=== PATIENT | female | born 1930 | race Caucasian/White ===

== ENCOUNTER 2016-12-01 10:04 | Emergency (ER) | payer MEDICARE, OTHER ==
[2016-12-01 10:31] VITALS: BP 141/78
--- NOTE | 2016-12-01 11:05 | UC ---
Shortness of Breath HPI - HPI Summary HPI Summary: SUDDEN ONSET OF SOB AND MID BACK PAIN 2 DAYS AGO WHILE GETTING OUT OF BED IN THE MORNING. SX RESOLVE AT REST. NO CP, NAUSEA, SWEATS, DIZZINESS. NO SYNCOPE. HAS HAD SOME INTERMITTENT BLURRY VISION BUT THIS IS LONGSTANDING. NO SIGNIFICANT MEDICAL HISTORY ALTHOUGH OF NOTE HAD STRESS INDUCED LEFT BUNDLE BRANCH BLOCK ON STRESS [place] [address] NOLAND. LEFT BUNDLE NOTED TODAY ON EKG WELL. 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 - SON Onset/Duration: Sudden Onset, Lasting Days, Still Present Current Severity: Moderate Dyspnea At: Rest Aggrevating Factors: Deep Breaths Alleviating Factors: Spontaneous Resolution - NO SOB AT REST Associated Signs & Symptoms: Negative: Cough (Productive), Cough (Nonproductive) , Wheezing, Chest Pain w/Cough, Chest Pain Unrelated to Cough, Fever, Chills, Diaphoresis, Nasal Congestion, Dizzy, Edema - Allergy/Home Medications Allergies/Adverse Reactions: Allergies Allergy/AdvReac Type Severity Reaction Status Date / Time No Known Allergies Allergy Verified 12/01/16 10:27 Home Medications: Home Medications Aspirin [Aspirin Adult Low Dose 81 MG] 1 PO DAILY 12/01/16 [History] Calcium 1 PO DAILY 12/01/16 [History] PMH/Surg Hx/FS Hx/Imm Hx Previously Healthy: Yes Endocrine History Of: Denies: Diabetes, Thyroid Disease Cardiovascular History Of: Denies: Cardiac Disorders, Hypertension Respiratory History Of: Denies: COPD, Asthma GI/ History Of: Denies: Ulcer - Surgical History Surgical History: Yes Surgery Procedure, Year, and Place: c section, lumpectomy both side, appy - Family History Known Family History: Positive: Cardiac Disease - Social History Alcohol Use: None Substance Use Type: None Smoking Status (MU): Former Smoker - Immunization History Most Recent Influenza Vaccination: 2016 Review of Systems Constitutional: Negative Skin: Negative Respiratory: Shortness Of Breath Gastrointestinal: Negative Musculoskeletal: Myalgia - BACK PAIN Neurological: Negative All Other Systems Reviewed And Are Negative: Yes Physical Exam Triage Information Reviewed: Yes Appearance: Well-Appearing, No Pain Distress, Well-Nourished Vital Signs: Initial Vital Signs Temp 98.8 F 12/01/16 10:21 Pulse 74 12/01/16 10:21 Resp 18 12/01/16 10:21 BP 141/78 12/01/16 10:21 Pulse Ox 92 12/01/16 10:21 Vital Signs Reviewed: Yes Eyes: Positive: Conjunctiva Clear ENT: Positive: Hearing grossly normal Neck: Positive: Supple Respiratory Exam: Normal Cardiovascular Exam: Normal Abdomen Description: Positive: Nontender, Soft Musculoskeletal: Positive: No Edema Neurological: Positive: Alert Psychological: Positive: Normal Response To Family, Age Appropriate Behavior Skin: Negative: rashes Diagnostics - EKG Cardiac Rate: NL - 75BPM. LEFT BUNDLE BRANCH BLOCK Ectopy: None ST Segment: Normal Shortness of Breath Dx - Differential Dx/Diagnosis Provider Diagnoses: SOB/LEFT BUNDLE BRANCH BLOCK - Physician Notification/Consults Discussed Patient Care With: DARIA HOLLINGSWORTH Time Discussed With Above Provider: 11:00 - TO [facility] PR[facility] CAR Discharge - Discharge Plan Condition: Stable Disposition: AGAINST MEDICAL ADVICE Referrals: Riddhi Brantley MD [Primary Care Provider] -
== END 2016-12-01 10:55 | disposition left against medical advice (07) ==
LOC: UCEAST 10:04
DX: R06.02 Shortness of breath (principal); I44.7 Left bundle-branch block, unspecified; Z87.891 Personal history of nicotine dependence
CPT/HCPCS: 93005; 99202; G0463

== ENCOUNTER 2016-12-01 11:16 | Emergency (ER) | payer MEDICARE, OTHER ==
[2016-12-01] MEDS ORDERED: Aspirin Low Dose CHEW TAB* 81 MG PO ONE (11:58)
[2016-12-01] MEDS ORDERED: NS 0.9% 1000 ML* 500 ML IV ONE (11:58)
--- NOTE | 2016-12-01 12:25 | RAD ---
INDICATION: Back pain COMPARISON: January 19, 2012 TECHNIQUE: An AP portable view obtained at 1200 hours is submitted. FINDINGS: Bones/Soft Tissues: There are no acute bony findings. Cardiomediastinal: The cardiomediastinal silhouette is normal. Lungs: There are no infiltrates. There are emphysematous changes Pleura: There are no pleural effusions. Other: None IMPRESSION: EMPHYSEMATOUS CHANGE. NO ACTIVE DISEASE.
[2016-12-01 12:50] LABS: Hematocrit 41 % (35-47); Hemoglobin 13.6 g/dl (12.0-16.0); Mean Corpuscular HGB Conc 34 g/dl (31-36); Mean Corpuscular Hemoglobin 30 pg (27-31); Mean Corpuscular Volume 89 fL (80-97); Mean Platelet Volume 8 um3 (7.4-10.4); Red Blood Count 4.57 10^6/ul (4.0-5.4); Red Cell Distribution Width 14 % (10.5-15); White Blood Count 8.5 10^3/ul (3.5-10.8)
[2016-12-01 13:07] LABS: Albumin 4.1 g/dL (3.2-5.2); BUN/Creatinine Ratio 22.4 (8-20); EGFR African American 92.8 (>60); EGFR Non-African American 72.2 (>60); Globulin 2.6 g/dL (2-4); Magnesium 2.1 mg/dL (1.9-2.7); Potassium 4.3 mmol/L (3.5-5.0); Total Bilirubin 0.5 mg/dL (0.2-1.0); Total Protein 6.7 g/dL (6.4-8.9)
--- NOTE | 2016-12-01 15:18 | CONSULT ---
Subjective Date of Service: 12/01/16 Interval History: 86 yo F with hx of tobacco abuse, COPD p/w back pain. Patient reports pain started a few days ago as she was twisting her body to get out of bed she noticed a sharp pain in the R posterior lower chest/mid-back. States she felt that it was likely a muscle strain. It hurt more with certain movements and with deep breathing. She states she has chronic mild SOB that did not seem any worse although she has not been ambulating as much as normal. Denies chest pain , nausea, vomiting, diaphoresis associated with her back pain. Says she took a full strength ASA the first day of the pain but has not taken anything since. Due to the persistent pain she came to the ED. EKG showed LBBB which is old. She received a full dose ASA here as well and when she ambulated to the bathroom earlier she felt the pain had pretty much resolved. She is anxious to go home. She reports no cardiac history. Due to acute SOB and palpitations in 2000 she underwent a stress test with showed no evidence of ischemia but she was found to have a LBBB at that time that seemed to be rate related although remained present until HR was < 100. She quit smoking at that time. Family History: Findings - F - CAD, at 92, M - healthy - at 93 Social History: Findings - Former tobacco abuse, quit in 2000, 50-100 pack year hx, no EtOH or drug use Past Medical History: Findings - COPD, vertigo, tobacco abuse Review of Systems - Measurements Intake and Output: Intake and Output Last 24 Hours 11/29/16 11/30/16 12/01/16 12/02/16 06:59 06:59 06:59 06:59 Weight 63.503 kg - Review of Systems Constitutional Symptoms: Negative: Fever Dermatology: Positive: Normal HEENT: Positive: Normal Eyes: Positive: Normal Thyroid: Positive: Normal Pulmonary: Positive: Shortness of Breath - chronic, no change Cardiology: Negative: Chest Pain, Palpitations, Syncope Gastroenterology: Positive: Constipation Negative: Abdominal Pain, Nausea, Vomiting, Diarrhea Genital - Urinary: Positive: Normal Neurology: Positive: Normal Psychiatry: Positive: Normal Objective Vital Signs 12/01/16 12/01/16 12/01/16 11:36 11:56 11:58 Temperature 96.7 F Pulse Rate 86 63 Respiratory 20 Rate Blood Pressure 90/73 143/82 (mmHg) O2 Sat by Pulse 100 99 Oximetry 12/01/16 12/01/16 12/01/16 12:00 12:23 12:30 Temperature 98.7 F Pulse Rate 79 70 70 Respiratory 16 20 Rate Blood Pressure 143/76 140/59 140/59 (mmHg) O2 Sat by Pulse 98 97 98 Oximetry 12/01/16 12/01/16 12/01/16 13:00 13:37 14:00 Temperature Pulse Rate 70 70 75 Respiratory 20 19 19 Rate Blood Pressure 149/64 151/68 149/81 (mmHg) O2 Sat by Pulse 97 97 99 Oximetry 12/01/16 14:30 Temperature Pulse Rate 69 Respiratory 18 Rate Blood Pressure 151/77 (mmHg) O2 Sat by Pulse 98 Oximetry Oxygen Devices in Use Now: None Appearance: Elderly, F, laying in bed in NAD Eyes: No Scleral Icterus, PERRLA Ears/Nose/Mouth/Throat: Mucous Membranes Moist Neck: NL Appearance and Movements; NL JVP Respiratory: Symmetrical Chest Expansion and Respiratory Effort, Clear to Auscultation Cardiovascular: NL Sounds; No Murmurs; No JVD, RRR, - - Mild TTP in R mid-back, just lateral to scapula Abdominal: NL Sounds; No Tenderness; No Distention Lymphatic: No Cervical Adenopathy Extremities: No Edema Skin: No Rash or Ulcers Neurological: Alert and Oriented x 3 Result Diagrams: 12/01/16 12:35 12/01/16 12:35 Assessment/Plan - Billing R sided back pain in an 86 yo F with hx of COPD, vertigo, tobacco abuse. Symptoms seem to be MSK in nature and would be very atypical for ACS. Initial troponin is negative and pain has been ongoing for some time now. EKG shows LBBB which was noted in the past related to elevated HR during her stress test, have no recent EKGs for comparison. Do not feel that the patient needs any further work-up here in the hospital and would treat conservatively with tylenol , NSAIDs and possibly low dose flexeril. Patient should follow-up with PCP as an outpatient. Counseling and/or Coordination of Care Minutes: 35
[2016-12-01 15:50] VITALS: BP 166/87
--- NOTE | 2016-12-01 21:19 | ED ---
Yoshi Carter Anna, scribed for Reyubmarcoi,Yahir Ramesh MD on 12/01/16 at 1153 . Back Pain - HPI Summary HPI Summary: Patient is an 86 y/o female coming to [facility] presenting with the sudden onset of constant right-sided middle back pain that began two days ago when she woke up with no apparent traumatic cause. She has intermittent vertigo at baseline, none today. She additionally has intermittent SOB. Denies CP, coughing, fever, leg pain. Denies history of blood clots, thyroid issues. She ate a small breakfast this morning. Her BP was 90/73 at triage, but is normally 118/60. Upon exam, it was 143/82. She was seen at [facility] today and recommended to come to [facility]. She takes Aspirin daily but no other daily medications. She had an EKG and stress test due to SOB and CP in 2000, which revealed at LBBB but no other findings. Her history is significant for mild COPD, but has not used oxygen in the past. 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 [employer] - Accompanied by her son Onset/Duration: Sudden Onset Onset/Duration: Started Days Ago, Still Present Timing: Lasting Days Severity Initially: Moderate Severity Currently: Moderate Pain Intensity: 8 Pain Scale Used: 0-10 Numeric - Allergies/Home Medications Allergies/Adverse Reactions: Allergies Allergy/AdvReac Type Severity Reaction Status Date / Time No Known Allergies Allergy Verified 12/01/16 10:27 Home Medications: Home Medications Aspirin EC Low Dose* [Ecotrin EC Low Dose 81 MG*] 81 mg PO DAILY 12/01/16 [ History Confirmed 12/01/16] Calcium Carbonate [Calcium 600] 600 mg PO DAILY 12/01/16 [History Confirmed ] Meclizine TAB* [Antivert 12.5 TAB*] 25 mg PO TID PRN 12/01/16 [History Confirmed 12/01/16] PMH/Surg Hx/FS Hx/Imm Hx Endocrine/Hematology History: Denies: Hx Diabetes, Hx Thyroid Disease Cardiovascular History: Reports: Other Cardiovascular Problems/Disorders - LBBB Denies: Hx Hypertension Respiratory History: Reports: Hx Chronic Obstructive Pulmonary Disease (COPD) - mild Denies: Hx Asthma GI History: Denies: Hx Ulcer - Surgical History Surgery Procedure, Year, and Place: c section, lumpectomy both side, appy Infectious Disease History: Denies: Hx Clostridium Difficile, Hx Hepatitis, Hx Human Immunodeficiency Virus (HIV), Hx of Known/Suspected MRSA, Traveled Outside the [place] in Last 30 Days - Family History Known Family History: Positive: Cardiac Disease - Social History Occupation: Retired Alcohol Use: None Substance Use Type: Reports: None Hx Tobacco Use: Yes Smoking Status (MU): Former Smoker Amount Used/How Often: Quit in 2000. Review of Systems Negative: Fever Negative: Chest Pain Positive: Shortness Of Breath. Negative: Cough Musculoskeletal: Other Positive: Myalgia - back pain, Edema - baseline, one year Neurological: Other - intermittent vertigo, chronic All Other Systems Reviewed And Are Negative: Yes Physical Exam Triage Information Reviewed: Yes Vital Signs On Initial Exam: Initial Vitals Temp Pulse Resp BP Pulse Ox 96.7 F 86 20 90/73 100 12/01/16 11:36 12/01/16 11:36 12/01/16 11:36 12/01/16 11:36 12/01/16 11:36 Vital Signs Reviewed: Yes Appearance: Positive: Well-Appearing, No Pain Distress, Well-Nourished Skin: Positive: Warm, Skin Color Reflects Adequate Perfusion, Dry Head/Face: Positive: Normal Head/Face Inspection Eyes: Positive: EOMI, CINTHIA, Conjunctiva Clear ENT: Positive: Hearing grossly normal Neck: Positive: Supple, Nontender Respiratory/Lung Sounds: Positive: Clear to Auscultation, Breath Sounds Present. Negative: Rales, Rhonchi, Wheezes Cardiovascular: Positive: RRR. Negative: Murmur, Rub Abdomen Description: Positive: Nontender, No Organomegaly, Soft. Negative: Distended, Guarding, Peritoneal Signs Bowel Sounds: Positive: Present Musculoskeletal: Positive: Strength/ROM Intact, Edema Left - 1+ non-pitting edema of LLE. Good pulses. Neurological: Positive: Sensory/Motor Intact, Alert, Oriented to Person Place, Time, Normal Gait. Negative: Cerebellar Dysfunction Psychiatric: Positive: Affect/Mood Appropriate Diagnostics - Vital Signs Vital Signs Temp Pulse Resp BP Pulse Ox 12/01/16 11:36 96.7 F 86 20 90/73 100 - Laboratory Lab Results: Lab Results 12/01/16 12/01/16 12/01/16 Range/Units 12:35 12:35 12:35 WBC 8.5 (3.5-10.8) 10^3/ul RBC 4.57 (4.0-5.4) 10^6/ul Hgb 13.6 (12.0-16.0) g/dl Hct 41 (35-47) % MCV 89 (80-97) fL MCH 30 (27-31) pg MCHC 34 (31-36) g/dl RDW 14 (10.5-15) % Plt Count 197 (150-450) 10^3/ul MPV 8 (7.4-10.4) um3 Neut % (Auto) 76.1 (38-83) % Lymph % (Auto) 16.1 L (25-47) % Snyder % (Auto) 7.1 (1-9) % Eos % (Auto) 0.3 (0-6) % Baso % (Auto) 0.4 (0-2) % Absolute Neuts (auto) 6.5 (1.5-7.7) 10^3/ul Absolute Lymphs (auto) 1.4 (1.0-4.8) 10^3/ul Absolute Monos (auto) 0.6 (0-0.8) 10^3/ul Absolute Eos (auto) 0 (0-0.6) 10^3/ul Absolute Basos (auto) 0 (0-0.2) 10^3/ul Absolute Nucleated RBC 0.01 10^3/ul Nucleated RBC % 0.1 INR (Anticoag Therapy) 0.96 (0.89-1.11) D-Dimer, Quantitative 225 (Less Than 230) ng/mL Sodium 138 (133-145) mmol/L Potassium 4.3 (3.5-5.0) mmol/L Chloride 103 (101-111) mmol/L Carbon Dioxide 31 (22-32) mmol/L Anion Gap 4 (2-11) mmol/L BUN 17 (6-24) mg/dL Creatinine 0.76 (0.51-0.95) mg/dL Est GFR ( Amer) 92.8 (>60) Est GFR (Non-Af Amer) 72.2 (>60) BUN/Creatinine Ratio 22.4 H (8-20) Glucose 93 (70-100) mg/dL Lactic Acid (0.5-2.0) mmol/L Calcium 10.0 (8.6-10.3) mg/dL Magnesium 2.1 (1.9-2.7) mg/dL Total Bilirubin 0.50 (0.2-1.0) mg/dL AST 17 (13-39) U/L ALT 11 (7-52) U/L Alkaline Phosphatase 50 (34-104) U/L Total Creatine Kinase 68 (10-223) U/L CK-MB (CK-2) 2.7 (0.6-6.3) ng/mL Troponin I 0.00 (<0.04) ng/mL B-Natriuretic Peptide ( - 100) pg/mL Total Protein 6.7 (6.4-8.9) g/dL Albumin 4.1 (3.2-5.2) g/dL Globulin 2.6 (2-4) g/dL Albumin/Globulin Ratio 1.6 (1-3) 12/01/16 12/01/16 Range/Units 12:35 12:35 WBC (3.5-10.8) 10^3/ul RBC (4.0-5.4) 10^6/ul Hgb (12.0-16.0) g/dl Hct (35-47) % MCV (80-97) fL MCH (27-31) pg MCHC (31-36) g/dl RDW (10.5-15) % Plt Count (150-450) 10^3/ul MPV (7.4-10.4) um3 Neut % (Auto) (38-83) % Lymph % (Auto) (25-47) % Snyder % (Auto) (1-9) % Eos % (Auto) (0-6) % Baso % (Auto) (0-2) % Absolute Neuts (auto) (1.5-7.7) 10^3/ul Absolute Lymphs (auto) (1.0-4.8) 10^3/ul Absolute Monos (auto) (0-0.8) 10^3/ul Absolute Eos (auto) (0-0.6) 10^3/ul Absolute Basos (auto) (0-0.2) 10^3/ul Absolute Nucleated RBC 10^3/ul Nucleated RBC % INR (Anticoag Therapy) (0.89-1.11) D-Dimer, Quantitative (Less Than 230) ng/mL Sodium (133-145) mmol/L Potassium (3.5-5.0) mmol/L Chloride (101-111) mmol/L Carbon Dioxide (22-32) mmol/L Anion Gap (2-11) mmol/L BUN (6-24) mg/dL Creatinine (0.51-0.95) mg/dL Est GFR ( Amer) (>60) Est GFR (Non-Af Amer) (>60) BUN/Creatinine Ratio (8-20) Glucose (70-100) mg/dL Lactic Acid 0.8 (0.5-2.0) mmol/L Calcium (8.6-10.3) mg/dL Magnesium (1.9-2.7) mg/dL Total Bilirubin (0.2-1.0) mg/dL AST (13-39) U/L ALT (7-52) U/L Alkaline Phosphatase (34-104) U/L Total Creatine Kinase (10-223) U/L CK-MB (CK-2) (0.6-6.3) ng/mL Troponin I (<0.04) ng/mL B-Natriuretic Peptide 73 ( - 100) pg/mL Total Protein (6.4-8.9) g/dL Albumin (3.2-5.2) g/dL Globulin (2-4) g/dL Albumin/Globulin Ratio (1-3) Result Diagrams: 12/01/16 12:35 12/01/16 12:35 Lab Statement: Any lab studies that have been ordered have been reviewed, and results considered in the medical decision making process. - Radiology CXR Xray Interpretation: Positive (See Comments) Radiology Interpretation Completed By: Radiologist - IMPRESSION: EMPHYSEMATOUS CHANGE. NO ACTIVE DISEASE. - EKG 1146 Cardiac Rate: NL - 89 bpm EKG Rhythm: Sinus Rhythm EKG Interpretation: APCs. LBBB. QRSD 143. No acute ischemic changes. Back Pain Course/Dx - Course Assessment/Plan: Patient is an 86 y/o female coming to [facility] presenting with the sudden onset of constant right-sided middle back pain that began two days ago when she woke up with no apparent traumatic cause. She has intermittent vertigo at baseline, none today. She additionally has SOB and left leg edema. Denies CP, coughing, fever, leg pain. Denies history of blood clots, thyroid issues. She ate a small breakfast this morning. Her BP was 90/73 at triage, but is normally 118/60. Upon exam, it was 143/82. She was seen at [facility] today and recommended to come to [facility]. She takes Aspirin daily but no other daily medications. She had an EKG and stress test due to SOB and CP in 2000, which revealed at LBBB but no other findings. Her history is significant for mild COPD , but has not used oxygen in the past. Labs reveal D-dimer of 225, BUN/ Creatinine ratio of 22.4, otherwise WNL. CXR reveals emphysematous change with no active disease. EKG reveals NSR of 89 bpm with LBBB, APCs, QRSD 143. Patient was given fluids and 324 mg PO Aspirin in the ED course. She was given Oxygen therapy. Discussed patient care with Dr. Alvarez (hospitalist) at 1437. Accepts for admission. After seeing the patient, Dr. Alvarez recommends that she be discharged home and treated on an outpatient basis with her PCP. - Diagnoses Provider Diagnoses: SOB (shortness of breath), Rib pain - Provider Notifications Discussed Care of Patient With: Dr. Alvarez (hospitalist) at 1437. Agrees to accept patient for admission. Discharge - Discharge Plan Condition: Stable Disposition: HOME Patient Education Materials: Dyspnea (ED), Chest Wall Pain (ED) Referrals: Riddhi Brantley MD [Primary Care Provider] - Additional Instructions: Follow up with your primary care provider within 48 hours. Return to the Emergency Department for new or worsening symptoms. The documentation as recorded by the Yoshi cifuentes Anna accurately reflects the service I personally performed and the decisions made by , Yahir Sin MD.
== END 2016-12-01 15:49 | disposition home or self-care (01) ==
LOC: ED 11:16
DX: R07.81 Pleurodynia (principal); R06.02 Shortness of breath; Z79.82 Long term (current) use of aspirin; Z87.891 Personal history of nicotine dependence
CPT/HCPCS: 36415; 71010; 80053; 82550; 82553; 83605; 83735; 83880; 84484; 85025; 85379; 85610; 93005; 99283; A9270-GY

== ENCOUNTER 2017-09-14 14:48 | Observation (INO) | payer MEDICARE, OTHER ==
[2017-09-14] MEDS ORDERED: Ondansetron INJ* 2 MG/ML VIAL IV ONE (15:27)
[2017-09-14 15:30] LABS: ABS Basophils 0 10^3/ul (0-0.2); ABS Eosinophils 0 10^3/ul (0-0.6); ABS Lymphocytes 0.2 10^3/ul (1.0-4.8); ABS Monocytes 0.4 10^3/ul (0-0.8); ABS Neutrophils 7.5 10^3/ul (1.5-7.7); ABS Nucleated RBC 0 10^3/ul; Eosinophil % 0 % (0-6); Hematocrit 36 % (35-47); Hemoglobin 12.1 g/dl (12.0-16.0); Lymphocyte % 2.7 % (25-47); Mean Corpuscular HGB Conc 33 g/dl (31-36); Mean Corpuscular Hemoglobin 29 pg (27-31); Mean Corpuscular Volume 88 fL (80-97); Mean Platelet Volume 8 um3 (7.4-10.4); Nucleated Red Blood Cells % 0.1; Platelet Count 174 10^3/ul (150-450); Red Blood Count 4.14 10^6/ul (4.0-5.4); Red Cell Distribution Width 14 % (10.5-15); White Blood Count 8.2 10^3/ul (3.5-10.8)
[2017-09-14] MEDS: NS 0.9% 1000 ML* 2,000 ML IV ONE (15:41)
[2017-09-14 15:45] LABS: EGFR Non-African American 76.6 (>60)
[2017-09-14] MEDS ORDERED: Acetaminophen TAB* 325 MG PO ONE (15:59)
[2017-09-14] MEDS ORDERED: Ibuprofen TAB* 400 MG PO ONE (16:58)
[2017-09-14] MEDS ORDERED: Ondansetron INJ* 2 MG/ML VIAL IV PRN (19:02)
[2017-09-14] MEDS ORDERED: Magnesium Sulfate 1 GM IV* 1 GM/100 ML BAG IV ONE (19:16)
[2017-09-14] MEDS ORDERED: NS 0.9% 500 ML* 500 ML IV SCH (20:00)
[2017-09-14] MEDS: Calcium Acetate CAP* 667 MG PO SCH (21:17)
--- NOTE | 2017-09-14 21:29 | HP ---
AMENDED REPORT NOW INCLUDES COSIGNER DESIGNATION - ESIGNED BEFORE ADJUSTMENT ADMISSION HISTORY AND PHYSICAL: DATE OF ADMISSION: 09/14/17 PRIMARY CARE PHYSICIAN: Dr. Riddhi Brantley. ADMITTING AND ATTENDING DURING THIS ADMISSION: Dr. George Funez.* (DICTATED BY JUANA SALAS NP) HISTORY OF PRESENT ILLNESS: This is a very pleasant 87-year-old female patient who was in her usual state of health until yesterday when she had a sudden onset of nausea, vomiting, and diarrhea that persisted for the last 24 hours. The patient stated she became so weak this morning and shaky. She was unable to tolerate water. The vomiting and diarrhea persisted to the point where she had to call 911 and was transferred by emergency medical services to the ER for evaluation. The patient received 2 L of IV fluids and Zofran in the emergency department. She said she did feel better. She is still complaining of some dizziness and general weakness. The patient states that she did not feel steady on her feet when trying to ambulate to the bathroom. At that point, the emergency physician Dr. Trejo consulted Medicine for an observation admission for this patient. The patient did state she had a headache earlier in the day when her symptoms began that was moderate to severe. PAST MEDICAL HISTORY: The patient has history of mild COPD, vertigo, and very remote history of tobacco abuse. PAST SURGICAL HISTORY: None. MEDICATIONS: At home include: 1. Baby aspirin 81 mg daily. 2. Calcium acetate 667 mg 2 times a day. 3. Ibuprofen as needed 400 mg for pain. ALLERGIES: The patient has no known drug allergies. FAMILY HISTORY: None. SOCIAL HISTORY: Tobacco abuse as stated above. She quit smoking 15 years ago. Denies any alcohol use or abuse, never in the past. Denies any illicit drug use. Lives by herself in senior housing. Has a son, Roberto, who is her medical proxy and a [id number] close by. REVIEW OF SYSTEMS: A 10-point review of systems is negative except as noted in the HPI. PHYSICAL EXAMINATION GENERAL: The patient is awake and alert. No acute distress noted. VITAL SIGNS: Currently, temperature 98.7, please make a note that temperature initially was 100.3 when she first arrived in the emergency department. Heart rate 74, respiratory rate 18, O2 saturation 96% on room air, blood pressure is 98/54. HEENT: The patient is atraumatic and normocephalic. PERRLA with nonicteric sclerae. Oral mucosa is very dry. NECK: Supple. No carotid bruits auscultated. No thyromegaly is appreciated. LUNGS: Clear bilaterally to auscultation without any wheezing, rhonchi, or rales. CARDIOVASCULAR: S1, S2 are present. Rate and rhythm are regular. No murmurs, gallops, or rubs appreciated. ABDOMEN: Soft and tender in the left lower quadrant only. Positive bowel sounds, moderately hyperactive noted. : Deferred. MUSCULOSKELETAL: There is no clubbing, no cyanosis, and no edema. She has +2 distal pulses palpable and good cap refill. SKIN: Turgor is intact. Does not appear to have any rashes or lesions. NEUROLOGIC: She is grossly intact with no focal deficits. PSYCHOLOGIC: She is cooperative and appropriate. DIAGNOSTIC STUDIES/LAB DATA: WBCs 8.2, RBCs 4.14, hemoglobin 12.1, hematocrit 36, platelets 174. Sodium 138, potassium 3.8, chloride 105, CO2 26, BUN 19, creatinine 0.72, glucose 122, calcium 8.5, magnesium 1.7, bilirubin 0.5, and total protein 5.9. EKG performed in the emergency department shows a sinus rhythm with a normal P axis with a left bundle-branch block, which was known from her previous EKG from earlier this year. IMPRESSION: This is an 87-year-old female with very little medical history other than some very mild chronic obstructive pulmonary disease and left bundle- branch block, but with no documented coronary artery disease and a remote history of smoking, who has had some nausea, vomiting, and diarrhea and now with subsequent weakness and hypotension. PLAN: The patient will be admitted to observation service under Dr. Funez. DIAGNOSES: 1. Viral gastroenteritis. 2. History of chronic obstructive pulmonary disease, not in exacerbation. 3. Hypomagnesemia secondary to #1. 4. Hypotension 2/2 dehydration The patient has already received 2 L of fluid. She will receive continued hydration at 75 mL per hour with normal saline. She can have Zofran IV every 6 to 8 hours as needed for nausea. We will place her on a soft diet. The patient has only been able to sip water in the ER. She has not been able to tolerate anything more than that. She was advised to stay away from dairy and try very mild soft diet to see if she tolerates. We will advance the diet as she tolerates. We will continue her baby aspirin and her calcium supplementation and we will give her 1 g of magnesium now given that she does have left bundle-branch block. There were no ST segment changes on her EKG; however with a low magnesium, I will give her 1 g of mag IV now and then recheck her magnesium level in the morning. The rest of the patient's course will be determined by further diagnostics, laboratories, and any other input from other providers as warranted or would be needed during this admission. Of important note, the patient is a DNR which was confirmed with her and her son, Roberto, who is also her healthcare proxy. This plan of care was also discussed with Dr. George Funez, the attending on this case and he is in agreement with the plan. JUANA SALAS NP [id number]/CPS #: [id number] MEMO
[2017-09-15 00:51] LABS: Urine Appearance Cloudy; Urine Blood 1+ (Negative); Urine Color Yellow; Urine Ketones Trace (Negative); Urine Protein Negative (Negative); Urine Specific Gravity 1.015 (1.010-1.030); Urine Urobilinogen Negative (Negative)
[2017-09-15 08:10] VITALS: BP 156/50
[2017-09-15] MEDS: Calcium Acetate CAP* 667 MG PO SCH (08:13)
[2017-09-15] MEDS ORDERED: Aspirin EC Low Dose* 81 MG TAB.EC PO SCH (09:00)
--- NOTE | 2017-09-16 03:04 | DS ---
CC: Dr. Brantley. * DISCHARGE SUMMARY: DATE OF ADMISSION: 09/14/17 DATE OF DISCHARGE: 09/15/17 HISTORY OF PRESENT ILLNESS: This 87-year-old woman presented with a sudden onset of nausea, vomiting, and diarrhea for less than 24 hours. She was very weak and shaky and could not drink any water. She called 911. She was given intravenous fluids. She was tested for influenza and was negative. Her laboratory data on admission was really unremarkable. Her potassium was 3.8 , her BUN was 19. She felt much better the next day. The vomiting and diarrhea went away. She was able to get around as well as usual. She was discharged on all her usual medications. FINAL DIAGNOSES: 1. Gastroenteritis. 2. History of mild chronic obstructive pulmonary disease. DISCHARGE MEDICATIONS: 1. Calcium acetate 660 mg b.i.d. 2. Aspirin 81 mg daily. [id number] #: [id number] MTDD
== END 2017-09-15 10:50 | disposition home or self-care (01) ==
LOC: ED 14:48 → MED 18:30
PROVIDERS: ADMIT Internal Medicine; ATTEND Internal Medicine
DX: K52.9 Noninfective gastroenteritis and colitis, unspecified (principal); Z87.09 Personal history of other diseases of the respiratory system; R42 Dizziness and giddiness; Z87.891 Personal history of nicotine dependence; I95.9 Hypotension, unspecified; E86.0 Dehydration
CPT/HCPCS: 36415; 80053; 81003; 81015; 83605; 83735; 84443; 84484; 85025; 87086; 87502; 93005; 96374; 96375; 99283; A9270-GY; G0378; J2405; J3475

== ENCOUNTER 2018-12-28 13:18 | Emergency (ER) | payer MEDICARE, OTHER ==
[2018-12-28 13:33] VITALS: BP 135/77
[2018-12-28] MEDS ORDERED: Albuterol/Ipratropium NEB.SOL* Albuterol 2.5 MG/Ipratropium 0.5 MG 3 ML INH ONE (15:30)
--- NOTE | 2018-12-28 15:31 | UC ---
Respiratory Complaint HPI - HPI Summary HPI Summary: 88 y/o female presents to the urgent care accompany by son c/o productive cough w/ yellowish phlegm for the past 2 weeks. Pt reports mild wheezing . fatigue and decrease appetite developed 3 days ago. Pt states she has had mild chills, but no fever, Cough is getting worse at night. She has not taken anything to alleviate cough. symptoms started w/ the common cold. Pt denies fever, SOB, chest pain, abdominal pain, N/V/D, neck pain. - History of Current Complaint Chief Complaint: UCRespiratory Stated Complaint: RESP ISSUE Time Seen by Provider: 12/28/18 15:09 Hx Obtained From: Patient Onset/Duration: Gradual Onset, Lasting Weeks - 2 weeks, Still Present, Worse Since - 3 days w/ wheezing Timing: Intermittent Episodes Severity Initially: Mild Severity Currently: Moderate Pain Intensity: 0 Pain Scale Used: 0-10 Numeric Character: Cough: Productive, Sputum Description: - yellowish Aggravating Factors: Recumbent Position Alleviating Factors: OTC Meds Associated Signs And Symptoms: Positive: Chills, Wheezing - mild, URI, Nasal Congestion, Sinus Discomfort. Negative: Fever - Risk Factors Pulmonary Embolism Risk Factors: Negative Cardiac Risk Factors: Negative Pseudomonas Risk Factors: Negative Tuberculosis Risk Factors: Negative - Allergies/Home Medications Allergies/Adverse Reactions: Allergies Allergy/AdvReac Type Severity Reaction Status Date / Time No Known Allergies Allergy Verified 12/28/18 13:33 PMH/Surg Hx/FS Hx/Imm Hx Previously Healthy: Yes - Surgical History Surgical History: Yes Surgery Procedure, Year, and Place: c section, lumpectomy both side, appy - Family History Known Family History: Positive: Cardiac Disease - Social History Alcohol Use: None Substance Use Type: None Smoking Status (MU): Former Smoker Amount Used/How Often: Quit in 2000. - Immunization History Most Recent Influenza Vaccination: 2016 Physical Exam - Summary Physical Exam Summary: Vital Signs Reviewed: Yes General: well developed, well nourished old female male sitting in the examining table w/o any apparent distress Eyes: Positive: Conjunctiva Clear - PERRLA, EOMI, fundi grossly normal ENT: Positive: Normal ENT inspection, Hearing grossly normal, Pharynx normal, Nasal congestion - edematous and erythematous nasal mucosa, Nasal drainage - yellowish drainage, TMs normal. Negative: Tonsillar swelling, Tonsillar exudate Neck: Positive: Supple, Nontender, No Lymphadenopathy Respiratory: no orthopnea or dyspnea. Able to speak in full sentences, no retractions or accessory muscle use, no tripod position, stridor, or head bobbing. Positive breath sounds bilaterally. diffuse scattered rhonchi on b/L lungs, mild wheezing in the posterior left lung, no crackles or rales. Cardiovascular: Positive: RRR, No Murmur, Pulses Normal, Brisk Capillary Refill Abdomen Description: Positive: Nontender, No Organomegaly, Soft. Negative: CVA Tenderness (R), CVA Tenderness (L) Bowel Sounds: Positive: Present Musculoskeletal Exam: Normal Musculoskeletal: Positive: Strength Intact, ROM Intact, No Edema Neurological Exam: Normal Psychological Exam: Normal Skin Exam: Normal Triage Information Reviewed: Yes Vital Signs: Initial Vital Signs Temp 97.1 F 12/28/18 13:28 Pulse 80 12/28/18 13:28 Resp 16 12/28/18 13:28 BP 135/77 12/28/18 13:28 Pulse Ox 97 12/28/18 13:28 Respiratory Course/Dx - Course Course Of Treatment: 88 y/o female presents to the urgent care accompany by son c/o productive cough w/ yellowish phlegm for the past 2 weeks. Pt reports mild wheezing . fatigue and decrease appetite developed 3 days ago. Pt states she has had mild chills, but no fever, Cough is getting worse at night. She has not taken anything to alleviate cough. symptoms started w/ the common cold. Pt denies fever, SOB, chest pain, abdominal pain, N/V/D, neck pain. Hx obtained. - Differential Dx/Diagnosis Differential Diagnosis/HQI/PQRI: Asthma, Bronchitis, Exacerbation Of COPD, Influenza, Lower Resp Infection, Sinusitis, Other - pneumonia Provider Diagnosis: Acute bronchitis, Wheezing Discharge - Sign-Out/Discharge Documenting (check all that apply): Patient Departure - d/C home All imaging exams completed and their final reports reviewed: Yes - Discharge Plan Condition: Stable Disposition: HOME Prescriptions: Albuterol HFA INHALER* [Ventolin HFA Inhaler*] 1 - 2 puff INH Q6H PRN #1 mdi PRN Reason: Wheezing Benzonatate CAP* [Tessalon 100 MG CAP*] 100 mg PO TID PRN #21 cap PRN Reason: Cough DOXYcycline CAP(*) [DOXYcycline 100MG CAP(*)] 100 mg PO BID #14 cap Patient Education Materials: Acute Bronchitis (ED), COPD (Chronic Obstructive Pulmonary Disease) (ED) Referrals: Riddhi Brantley MD [Primary Care Provider] - 3 Days Additional Instructions: 1-Please take full course of antibiotic to avoid resistance. Take yogurt w/ probiotics or Culturelle to protect your GI system 2-Take Tessalon PO tabs as directed and use the albuterol inhaler w/ aerochamber to alleviate cough. Increase fluid intake, rest and eat well. 3- If symptoms do not improve or worsen or your develop SOB with fever and severe wheezing please go immediately to the ER further evaluation and treatment. 4- F/u with your PCP in 3 days for further management if symptoms are not improving. - Billing Disposition and Condition Condition: STABLE Disposition: Home
== END 2018-12-28 16:50 | disposition home or self-care (01) ==
LOC: UCEAST 13:18
DX: J20.9 Acute bronchitis, unspecified (principal); R06.2 Wheezing; Z87.891 Personal history of nicotine dependence
CPT/HCPCS: 71046; 99212; A9270-GY; G0463

== ENCOUNTER 2019-01-01 08:58 | Emergency (ER) | payer MEDICARE, OTHER ==
[2019-01-01] MEDS ORDERED: Acetaminophen TAB* 325 MG PO ONE (10:45)
[2019-01-01 10:56] LABS: ABS Lymphocytes 1.1 10^3/ul (1.0-4.8); ABS Monocytes 0.5 10^3/ul (0-0.8); ABS Neutrophils 7.5 10^3/ul (1.5-7.7); Eosinophil % 0.2 %; Hematocrit 42 % (35-47); Hemoglobin 13.5 g/dL (12.0-16.0); Lymphocyte % 11.8 %; Mean Corpuscular HGB Conc 32 g/dL (31-36); Mean Corpuscular Hemoglobin 29 pg (27-31); Mean Corpuscular Volume 89 fL (80-97); Mean Platelet Volume 7.6 fL (7.4-10.4); Platelet Count 249 10^3/uL (150-450); Red Cell Distribution Width 14 % (10.5-15); White Blood Count 9.2 10^3/uL (3.5-10.8)
[2019-01-01 11:13] LABS: Albumin 4.2 g/dL (3.2-5.2); Albumin/Globulin Ratio 1.6 (1-3); BUN/Creatinine Ratio 26.8 (8-20); Calcium 10.1 mg/dL (8.6-10.3); EGFR African American 79.6 (>60); EGFR Non-African American 65.8 (>60); Globulin 2.7 g/dL (2-4); Potassium 4.5 mmol/L (3.5-5.0); Total Bilirubin 0.5 mg/dL (0.2-1.0); Total Protein 6.9 g/dL (6.4-8.9)
--- NOTE | 2019-01-01 11:24 | ED ---
Shortness of Breath - HPI Summary HPI Summary: Patient is an 88-year-old female presenting to the ED with "just not feeling right." She was diagnosed with acute bronchitis due to a cough with clear mucus production over the past 5 days. She endorses some shortness of breath with ambulation, but this is better with rest. No history of CHF, COPD, however she does state she has some mild asthma. She was given albuterol inhaler, Tessalon and an antibiotic, all without significant improvement. She does state "I just don't feel myself." She endorses mild confusion, but denies any memory loss, visual changes. 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 Onset/Duration: Sudden Onset Timing: Constant Associated Signs & Symptoms: Cough (Productive) - Risk Factors Pulmonary Embolism: Negative Cardiac: Negative Pseudomonas: Negative - Allergy/Home Medications Allergies/Adverse Reactions: Allergies Allergy/AdvReac Type Severity Reaction Status Date / Time No Known Allergies Allergy Verified 12/28/18 13:33 PMH/Surg Hx/FS Hx/Imm Hx Previously Healthy: Yes Endocrine/Hematology History: Denies: Hx Diabetes, Hx Thyroid Disease Cardiovascular History: Reports: Other Cardiovascular Problems/Disorders - LBBB Denies: Hx Hypertension Respiratory History: Reports: Hx Chronic Obstructive Pulmonary Disease (COPD) - mild Denies: Hx Asthma GI History: Reports: Other GI Disorders - Constipation Denies: Hx Ulcer Sensory History: Reports: Hx Contacts or Glasses - Reading, not with patient, Hx Hearing Aid - Bilateral, not with patient Opthamlomology History: Reports: Hx Contacts or Glasses - Reading, not with patient - Surgical History Surgery Procedure, Year, and Place: c section, lumpectomy both side, appy - Immunization History Hx Pertussis Vaccination: No Immunizations Up to Date: Yes Infectious Disease History: No Infectious Disease History: Denies: Hx Clostridium Difficile, Hx Hepatitis, Hx Human Immunodeficiency Virus (HIV), Hx of Known/Suspected MRSA, Traveled Outside the [place] in Last 30 Days - Family History Known Family History: Positive: Cardiac Disease - Social History Occupation: Unemployed Lives: With Family Alcohol Use: None Hx Substance Use: No Substance Use Type: Reports: None Hx Tobacco Use: Yes Smoking Status (MU): Former Smoker Amount Used/How Often: Quit in 2000. Review of Systems Constitutional: Negative Negative: Fever, Chills, Fatigue, Skin Diaphoresis Negative: Dental Pain, Sore Throat Negative: Palpitations, Chest Pain Positive: Shortness Of Breath, Cough Negative: Abdominal Pain, Vomiting Negative: Arthralgia Positive: Weakness Psychological: Normal All Other Systems Reviewed And Are Negative: Yes Physical Exam Triage Information Reviewed: Yes Vital Signs On Initial Exam: Initial Vitals Temp Pulse Resp BP Pulse Ox 96.7 F 84 18 125/80 97 01/01/19 09:02 01/01/19 09:02 01/01/19 09:02 01/01/19 09:02 01/01/19 09:02 Vital Signs Reviewed: Yes Appearance: Positive: Well-Appearing, Well-Nourished Skin: Positive: Warm, Skin Color Reflects Adequate Perfusion Head/Face: Positive: Normal Head/Face Inspection Eyes: Positive: EOMI, Conjunctiva Clear Neck: Positive: Supple, No Lymphadenopathy Respiratory/Lung Sounds: Positive: Clear to Auscultation, Breath Sounds Present Cardiovascular: Positive: RRR, Pulses are Symmetrical in both Upper and Lower Extremities Musculoskeletal: Positive: Normal, Strength/ROM Intact Neurological: Positive: Speech Normal Psychiatric: Positive: Normal, Affect/Mood Appropriate AVPU Assessment: Alert Diagnostics - Vital Signs Vital Signs Temp Pulse Resp BP Pulse Ox 01/01/19 10:00 79 22 97 01/01/19 09:21 29 01/01/19 09:02 96.7 F 84 18 125/80 97 - Laboratory Lab Results: Lab Results 01/01/19 01/01/19 01/01/19 Range/Units 10:43 10:43 10:43 WBC 9.2 (3.5-10.8) 10^3/uL RBC 4.70 (3.70-4.87) 10^6 /uL Hgb 13.5 (12.0-16.0) g/dL Hct 42 (35-47) % MCV 89 (80-97) fL MCH 29 (27-31) pg MCHC 32 (31-36) g/dL RDW 14 (10.5-15) % Plt Count 249 (150-450) 10^3/uL MPV 7.6 (7.4-10.4) fL Neut % (Auto) 81.9 % Lymph % (Auto) 11.8 % Dane % (Auto) 5.8 % Eos % (Auto) 0.2 % Baso % (Auto) 0.3 % Absolute Neuts (auto) 7.5 (1.5-7.7) 10^3/ul Absolute Lymphs (auto) 1.1 (1.0-4.8) 10^3/ul Absolute Monos (auto) 0.5 (0-0.8) 10^3/ul Absolute Eos (auto) 0.0 (0-0.6) 10^3/ul Absolute Basos (auto) 0.0 (0-0.2) 10^3/ul Absolute Nucleated RBC 0.0 10^3/ul Nucleated RBC % 0.0 Sodium 141 (135-145) mmol/L Potassium 4.5 (3.5-5.0) mmol/L Chloride 104 (101-111) mmol/L Carbon Dioxide 31 (22-32) mmol/L Anion Gap 6 (2-11) mmol/L BUN 22 (6-24) mg/dL Creatinine 0.82 (0.51-0.95) mg/dL Est GFR ( Amer) 79.6 (>60) Est GFR (Non-Af Amer) 65.8 (>60) BUN/Creatinine Ratio 26.8 H (8-20) Glucose 113 H (70-100) mg/dL Calcium 10.1 (8.6-10.3) mg/dL Total Bilirubin 0.50 (0.2-1.0) mg/dL AST 16 (13-39) U/L ALT 10 (7-52) U/L Alkaline Phosphatase 60 (34-104) U/L B-Natriuretic Peptide 78 (<=100) pg/mL Total Protein 6.9 (6.4-8.9) g/dL Albumin 4.2 (3.2-5.2) g/dL Globulin 2.7 (2-4) g/dL Albumin/Globulin Ratio 1.6 (1-3) Result Diagrams: 01/01/19 10:43 01/01/19 10:43 Lab Statement: Any lab studies that have been ordered have been reviewed, and results considered in the medical decision making process. Course/Dx - Course Course Of Treatment: On physical examination, lungs are CTA. RRR. Patient appears well and nondiaphoretic. Nontoxic appearing. Labs are obtained are WNL. UA obtained and is WNL. Chest x-ray obtained which shows hyperinflation of the lung coronado. Discussed results with patient and have encouraged her to follow-up with Dr. Brantley next week. She voices no concerns at this time. I discussed this may be a viral illness in which she should rest this time. - Diagnoses Provider Diagnoses: Shortness of breath, Confusion Discharge - Sign-Out/Discharge Documenting (check all that apply): Patient Departure Patient Received Moderate/Deep Sedation with Procedure: No - Discharge Plan Condition: Stable Disposition: HOME Referrals: Riddhi Brantley MD [Primary Care Provider] - Additional Instructions: Please follow up with Dr. Brantley. Rest as much as possible This may be a virus that needs to run its course No other findings on exam today - Billing Disposition and Condition Condition: STABLE Disposition: Home
[2019-01-01 11:38] VITALS: BP 137/84
[2019-01-01 12:21] LABS: Urine Appearance Cloudy; Urine Bacteria 1+ (Absent); Urine Bilirubin Negative (Negative); Urine Blood 1+ (Negative); Urine Color Yellow; Urine Glucose Negative (Negative); Urine Ketones Negative (Negative); Urine Nitrite Negative (Negative); Urine Protein Negative (Negative); Urine Red Blood Cell 2+(6-10/hpf) (Absent); Urine Specific Gravity 1.018 (1.010-1.030); Urine Squamous Epithelial Cell Present (Absent); Urine Urobilinogen Negative (Negative); Urine White Blood Cell Trace(0-5/hpf) (Absent)
== END 2019-01-01 12:57 | disposition home or self-care (01) ==
LOC: ED 08:58
DX: R06.02 Shortness of breath (principal); R05 Cough; R41.0 Disorientation, unspecified; J44.9 Chronic obstructive pulmonary disease, unspecified; Z87.891 Personal history of nicotine dependence
CPT/HCPCS: 36415; 71046; 80053; 81003; 81015; 83880; 85025; 87086; 99283; A9270-GY